=== PATIENT | female | born 1990 | race Caucasian/White ===

== ENCOUNTER 2021-06-28 16:49 | Emergency (ER) | payer OTHER ==
[~2021-06-28 16:49] MED LIST: IBUPROFEN600 MG PO
[2021-06-28 18:55] LABS: HEMOGLOBIN 13.1 gm/dl (12.3-15.3); RED BLOOD COUNT 4.81 M/UL (4.00-5.10)
[2021-06-28 19:22] LABS: BUN/CREATININE RATIO 10 (0-10)
== END 2021-06-28 19:57 | disposition home or self-care (01) ==
LOC: ER1 16:49
PROVIDERS: Emergency Medicine
DX: R10.11 Right upper quadrant pain (principal)
CPT/HCPCS: 80053; 81001; 83690; 85025; 99284

== ENCOUNTER → 2021-06-29 | Outpatient (CLI) | payer OTHER | LOC: US 10:00 | DX: R10.11 Right upper quadrant pain (principal) | CPT/HCPCS: 76705 ==